=== PATIENT | male | born 1955 | race African-American/Black ===

== ENCOUNTER 2018-12-05 11:11 | Inpatient (IN) | payer BC, OTHER ==
[2018-11-25 13:26] VITALS: BMI 28.2
--- NOTE | 2018-12-05 09:34 | HP ---
[facility]ellite [facility] - Chief Complaint Chief Complaint: right knee pain - Past Medical History Allergies/Adverse Reactions: Allergies Allergy/AdvReac Type Severity Reaction Status Date / Time No Known Drug Allergies Allergy Verified 11/25/18 13:26 - Current Medications Current Medications: Home Medications Medication Instructions Recorded Atorvastatin Ca [Lipitor] 20 mg PO DAILY 11/25/18 Lisinopril 10 mg PO DAILY 11/25/18 Sitagliptin Phos/Metformin HCl 1 tab PO BID 11/25/18 [Janumet 50-1,000 mg Tablet] Satellite Physical Exam - Physical Examination General Appearance: Well Nourished, Well Developed, Alert & Oriented x3 ENT: Clear Lung: Normal air movement Heart: Regular rate & rhythm Extremities: Other (right knee- + swelling, + ttp, decr rom, nvi xrays show grade 4 tricompartmental djd) Neurological: Intact, Alert, Oriented Satellite Impression/Plan - Impression/Plan Impression: right knee djd Operative Procedure: right morris tkr Date to be Performed: 12/05/18
[2018-12-05] MEDS ORDERED: CEFAZOLIN 2 GM in DEXTROSE 5%-WATER - 50 ML IVPB ONE (11:34)
[2018-12-05] MEDS ORDERED: TRANEXAMIC ACID 1000 MG/10 ML VIAL IVPUSH ONE (11:34)
[2018-12-05] MEDS: oxyCODONE HCL 10 MG SUSTAINED ACTING TABLET PO ONE ×2 (13:30→19:12)
[2018-12-05] MEDS: CELECOXIB 200 MG CAPSULE PO ONE ×2 (13:30→19:13)
[2018-12-05] MEDS: GABAPENTIN 300 MG CAPSULE (FP) PO ONE ×2 (13:30→19:13)
[2018-12-05] MEDS ORDERED: MIDAZOLAM HCL 2 MG/2 ML SINGLE DOSE VIAL ONE (13:48)
[2018-12-05] MEDS ORDERED: BUPIVACAINE LIPOSOME/PF (EXPAREL) 266 MG/20 ML VIAL ONE (13:48)
[2018-12-05] MEDS ORDERED: ceFAZolin SODIUM 1 GM VIAL ONE ×2 (14:06→14:43)
[2018-12-05] MEDS ORDERED: VANCOMYCIN 1,000 MG VIAL (RESTRICTED TO ID ONLY) ONE (14:06)
[2018-12-05] MEDS ORDERED: BUPIVACAINE HCL/PF 0.5% (5MG/ML) 10 ML VIAL ONE (14:34)
[2018-12-05] MEDS ORDERED: PROPOFOL 20 ML ONE ×2 (14:46)
[2018-12-05] MEDS ORDERED: VANCOMYCIN 1,000 MG VIAL (RESTRICTED TO ID ONLY) IVPB ONE (15:23)
[2018-12-05] MEDS ORDERED: ONDANSETRON 4 MG/2 ML VIAL ONE (15:42)
[2018-12-05] MEDS ORDERED: DEXAMETHASONE SOD PHOSPHATE 4 MG/1 ML VIAL ONE (15:42)
[2018-12-05] MEDS ORDERED: MAGNESIUM HYDROX 2400MG/30ML ORAL SUSPENSION 30 ML CUP PO PRN (16:23)
[2018-12-05] MEDS ORDERED: MAG HYDROX/AL HYDROX/SIMETH 30 ML UNIT-DOSE CUP PO PRN (16:23)
[2018-12-05] MEDS ORDERED: ONDANSETRON 4 MG/2 ML VIAL IVPUSH PRN (16:23)
--- NOTE | 2018-12-05 16:25 | OP ---
Operative Note - Note: Operative Date: 12/05/18 ([place]) Pre-Operative Diagnosis: right knee djd Operation: right morris tkr Post-Operative Diagnosis: Same as Pre-op Surgeon: Solis العلي Loader Magazine Grinder: Matty Castro Anesthesiologist/FRUIT GRADING SUPERVISOR: Levi Vizcarra Anesthesia: Spinal, Local Specimens Removed: bone fragments Estimated Blood Loss (mls): 150 Operative Report Dictated: Yes
[2018-12-05] MEDS ORDERED: LACTATED RINGERS SOLUTION 1,000 ML IV SCH (16:30)
[2018-12-05] MEDS ORDERED: oxyCODONE HCL 5 MG TABLET PO PRN (16:52)
[2018-12-05] MEDS ORDERED: ACETAMINOPHEN 325 MG TABLET (FP) ONE (17:11)
[2018-12-05] MEDS ORDERED: ACETAMINOPHEN 325 MG TABLET (FP) PO ONE (17:15)
[2018-12-05] MEDS: ACETAMINOPHEN 325 MG TABLET (FP) PO SCH ×2 (17:53→22:35)
[2018-12-05] MEDS ORDERED: INSULIN (NOVOLOG) ASPART 100 UNITS/ML 10ML VIAL ONE (18:01)
[2018-12-05] MEDS: INSULIN SLIDING SCALE (NOVOLOG) 1 VIAL SQ SCH ×2 (18:12→21:30)
[2018-12-05] MEDS: ATORVASTATIN CA 20 MG TABLET (FP) PO SCH (21:24)
[2018-12-05] MEDS: GABAPENTIN 300 MG CAPSULE (FP) PO SCH (21:24)
[2018-12-05] MEDS: SENNOSIDES/DOCUSATE COMBO (SENNA PLUS) TABLET (UD) PO SCH (21:25)
[2018-12-05] MEDS: oxyCODONE HCL 10 MG SUSTAINED ACTING TABLET PO SCH (21:25)
[2018-12-05] MEDS: oxyCODONE HCL 5 MG TABLET PO PRN (21:26)
[2018-12-05] MEDS ORDERED: PATIENT'S OWN MEDICATION (NON-FORMULARY) (Sitagliptin Phos/Metformin Hcl [Janumet 50-1,000 PO SCH (22:00)
[2018-12-05] MEDS: CEFAZOLIN 2 GM/D5W 2 GM/50 ML ML IVPB SCH (22:36)
[2018-12-06] MEDS: ACETAMINOPHEN 325 MG TABLET (FP) PO SCH ×4 (05:41→23:00)
[2018-12-06] MEDS: oxyCODONE HCL 5 MG TABLET PO PRN ×2 (05:42→09:59)
[2018-12-06] MEDS: CEFAZOLIN 2 GM/D5W 2 GM/50 ML ML IVPB SCH (06:15)
[2018-12-06] MEDS: metFORMIN HCL 500 MG TABLET (FP) PO SCH ×2 (06:15→16:30)
[2018-12-06] MEDS: sitaGLIPtin PHOSPHATE 50 MG TABLET PO SCH ×2 (06:16→16:35)
[2018-12-06] MEDS: INSULIN SLIDING SCALE (NOVOLOG) 1 VIAL SQ SCH ×4 (06:16→21:54)
--- NOTE | 2018-12-06 07:01 | SPEC ---
DATE OF OPERATION: 12/05/2018 PREOPERATIVE DIAGNOSIS: Degenerative joint disease, right knee. POSTOPERATIVE DIAGNOSIS: Degenerative joint disease, right knee. PROCEDURE: Right total knee replacement with robotic-assisted navigation (MAKOplasty). SURGICAL ATTENDING: Venkat العلي MD DAILY SALES AUDIT CLERK: HARJIT Mario ANESTHESIA: Regional and spinal. CLOSURE: A Triathlon cement-less total knee system with a 6 femur, 5 tibia, 11 polyethylene, a 35-mm press-fit patella; No. 1 Vicryl, fascia; 0 and 2-0 for subcutaneous; and 3-0 Monocryl subcuticular with skin glue for skin; 4-0 undyed Vicryl for pin sites. ESTIMATED BLOOD LOSS: Less than 100 mL. COMPLICATIONS: None. CONDITION: To recovery room in stable condition. DESCRIPTION OF OPERATIVE PROCEDURE: Patient was taken to the operating room on December 05, 2018. Regional and spinal anesthesia was administered by the anesthesiologist. IV Kefzol was administered prophylactically prior to the case as well as TXA. The right lower extremity was prepped and draped in the usual sterile fashion. The midline 10- to 12-cm longitudinal incision was made. Hemostasis was achieved with Bovie cautery. Sharp dissection was carried down to the extensor mechanism which was perform the procedure. Medial parapatellar arthrotomy was then performed, leaving a cuff of tissue for later closure. The patella was inverted and the knee was flexed up. The fat pad was excised. Subperiosteal dissection was done on the anteromedial proximal tibia until the knee was able to be brought forward. This was facilitated by taking the ACL, PCL and medial and lateral menisci. Checkpoints were placed in both the femur and in the tibia. Two parallel threaded pins were drilled superior to the knee joint through the already made incision from anterior to posterior just going through the anterior cortex but just engaging but not going through the posterior cortex. Two threaded pins were drilled through 2 small stab incisions in parallel fashion 1 handbreadth below the tibial tubercle through the anterior cortex of the tibia and engaging but not going through the posterior cortex. Both sets of pins were attached to navigation arrays for the SUZY system. The knee was then registered with the navigation system with center of rotation of the hip, medial and lateral malleoli and multiple sites both on the tibia and on the femur. Confirmation of excellent registration was confirmed by "popping the bubbles." At this time, the knee was thoroughly inspected to remove all osteophytes around the knee. The knee was then tensioned in varus/valgus at both full extension and at 90 degrees of flexion to ascertain our gaps. The virtual position of the components was optimized to ensure equal gaps throughout the range of motion. Once this was performed, the robot was brought into the field, was registered. The bone was cut as per the specifications on both the tibia and on the femur. The box cuts were then made as well. Excellent trial stability was obtained on the femur. The tibial baseplate was allowed to "find itself" and then was clipped into place. Confirmation of excellent external rotation of that component was confirmed by the navigation device as well.The patella was calibered for thickness and cut at the appropriate level. The appropriate lollipop was used to drill 3 holes in the patella and a trial asymmetric patellar button was applied. The knee was taken through a range of motion and found to have excellent stability from full extension to full flexion with excellent tracking of the patella. The trial components were then removed. The lug holes were drilled in the femur. The cementless keel was punched in the tibia. The real Press-Fit components were malleted into place, first with the tibia and then with the femur, and then the patella was crimped into place as well. The real polyethylene liner was then clipped into place. Range of motion, stability and tracking were as described earlier. The knee was thoroughly irrigated with copious amounts of irrigation. Vancomycin powder was placed inside the joint. The medial parapatellar arthrotomy was then closed using No. 1 Vicryl interrupted suture. Post closure of the arthrotomy, the knee was taken through a range of motion and found to have no undue tension on the repair. The subcutaneous was then pulse antibiotic irrigated, closed with 0 and 2-0 Vicryl and 3-0 Monocryl subcuticular with skin glue for the skin. Prior to closure, the checkpoints were removed as were the threaded pins. The tibial pin sites were closed with 4-0 undyed Vicryl. A sterile pressure Aquacel dressing was applied. No tourniquet was used during the case. The total blood loss was approximately 100 mL. No complication. Patient was transferred to recovery in stable condition. VENKAT العلي M.D. KIESHA/[id number]
[2018-12-06 07:46] LABS: HEMATOCRIT 34.1 % (35.4-49); HEMOGLOBIN 11.4 GM/dl (11.7-16.9); MCHC 33.5 g/dl (32.0-35.9); MEAN CELL VOLUME 95.4 fl (80-96); MEAN PLT VOLUME 9.4 fl (7.5-11.1); PLATELET COUNT 157 K/MM3 (134-434); RBC 3.57 M/mm3 (4.00-5.60); RDW 10.7 % (11.9-15.9); WHITE BLOOD COUNT 10.9 K/mm3 (4.0-10.8)
[2018-12-06] MEDS: ASPIRIN 325 MG TABLET PO SCH (09:00)
[2018-12-06] MEDS: GABAPENTIN 300 MG CAPSULE (FP) PO SCH ×2 (09:58→21:09)
[2018-12-06] MEDS: SENNOSIDES/DOCUSATE COMBO (SENNA PLUS) TABLET (UD) PO SCH ×2 (09:58→21:09)
[2018-12-06] MEDS: MULTIVITAMINS (DAILY MVI) TABLET (FP) PO SCH (09:58)
[2018-12-06] MEDS: PANTOPRAZOLE 40 MG TABLET (FP) PO SCH (09:59)
[2018-12-06] MEDS: oxyCODONE HCL 10 MG SUSTAINED ACTING TABLET PO SCH ×2 (09:59→21:10)
[2018-12-06] MEDS: LISINOPRIL 10 MG TABLET (FP) PO SCH (09:59)
--- NOTE | 2018-12-06 15:17 | PN ---
Progress Note (short form) - Note Progress Note: Ortho Pt seen and examined s/p right morris tkr pod #1 Selected Entries 12/06/18 14:02 Temperature 98.6 F Pulse Rate 85 Respiratory 17 Rate Blood Pressure 101/50 L Laboratory Tests 12/06/18 07:05 WBC 10.9 H Hgb 11.4 L Hct 34.1 L Plt Count 157 dressing saturated, calf soft, nt rom 0-90, nvi a/p dressing changed PT dvt ppx pain control d/c home tomorrow if stable
[2018-12-06] MEDS: ATORVASTATIN CA 20 MG TABLET (FP) PO SCH (21:09)
[2018-12-07] MEDS: ACETAMINOPHEN 325 MG TABLET (FP) PO SCH ×4 (05:34→22:17)
[2018-12-07] MEDS: sitaGLIPtin PHOSPHATE 50 MG TABLET PO SCH ×2 (06:28→16:45)
[2018-12-07] MEDS: metFORMIN HCL 500 MG TABLET (FP) PO SCH ×2 (06:28→16:45)
[2018-12-07] MEDS: INSULIN SLIDING SCALE (NOVOLOG) 1 VIAL SQ SCH ×4 (06:48→22:09)
[2018-12-07 07:51] LABS: HEMATOCRIT 32.1 % (35.4-49); HEMOGLOBIN 10.4 GM/dl (11.7-16.9); MCH 31.3 pg (25.7-33.7); MCHC 32.4 g/dl (32.0-35.9); MEAN CELL VOLUME 96.6 fl (80-96); MEAN PLT VOLUME 10.4 fl (7.5-11.1); PLATELET COUNT 157 K/MM3 (134-434); RBC 3.32 M/mm3 (4.00-5.60); WHITE BLOOD COUNT 12.1 K/mm3 (4.0-10.8)
[2018-12-07] MEDS: ASPIRIN 325 MG TABLET PO SCH (09:08)
--- NOTE | 2018-12-07 09:28 | PN ---
Progress Note (short form) - Note Progress Note: Ortho Pt seen and examined s/p right morris tkr pod #2. dressing still with drainage Selected Entries 12/07/18 05:00 Temperature 99.0 F Pulse Rate 90 Respiratory 20 Rate Blood Pressure 157/87 Laboratory Tests 12/07/18 07:10 WBC 12.1 H Hgb 10.4 L Hct 32.1 L Plt Count 157 dressing saturated, calf soft, nt rom 0-90, nvi a/p dressing changed- will need to keep pt to monitor incision and wound healing PT dvt ppx pain control d/c home tomorrow if stable
[2018-12-07] MEDS: GABAPENTIN 300 MG CAPSULE (FP) PO SCH ×2 (09:39→22:09)
[2018-12-07] MEDS: PANTOPRAZOLE 40 MG TABLET (FP) PO SCH (09:39)
[2018-12-07] MEDS: SENNOSIDES/DOCUSATE COMBO (SENNA PLUS) TABLET (UD) PO SCH ×2 (09:39→22:09)
[2018-12-07] MEDS: MULTIVITAMINS (DAILY MVI) TABLET (FP) PO SCH (09:39)
[2018-12-07] MEDS: LISINOPRIL 10 MG TABLET (FP) PO SCH (09:39)
[2018-12-07] MEDS: traMADol HCL 50 MG TABLET PO PRN (09:39)
[2018-12-07] MEDS: oxyCODONE HCL 10 MG SUSTAINED ACTING TABLET PO SCH ×2 (09:40→22:09)
[2018-12-07] MEDS: ATORVASTATIN CA 20 MG TABLET (FP) PO SCH (22:09)
[2018-12-08] MEDS: traMADol HCL 50 MG TABLET PO PRN ×2 (01:47→06:57)
[2018-12-08] MEDS: metFORMIN HCL 500 MG TABLET (FP) PO SCH (06:19)
[2018-12-08] MEDS: ACETAMINOPHEN 325 MG TABLET (FP) PO SCH (06:19)
[2018-12-08] MEDS: sitaGLIPtin PHOSPHATE 50 MG TABLET PO SCH (06:22)
[2018-12-08] MEDS: INSULIN SLIDING SCALE (NOVOLOG) 1 VIAL SQ SCH (06:23)
--- NOTE | 2018-12-08 07:27 | PN ---
Progress Note (short form) - Note Progress Note: Ortho Pt seen and examined s/p right morris tkr pod #3. Selected Entries 12/08/18 06:00 Temperature 99.0 F Pulse Rate 103 H Respiratory 18 Rate Blood Pressure 157/74 Laboratory Tests 12/07/18 07:10 WBC 12.1 H Hgb 10.4 L Hct 32.1 L Plt Count 157 dressing with slight saturation, calf soft, nt rom 0-90, nvi a/p dressing changed- no active drainage PT dvt ppx pain control d/c home today f/u in 1 week
--- NOTE | 2018-12-08 07:28 | DS ---
Physical Examination Vital Signs: Vital Signs Temperature 99.0 F 12/08/18 06:00 Pulse Rate 103 H 12/08/18 06:00 Respiratory Rate 18 12/08/18 06:00 Blood Pressure 157/74 12/08/18 06:00 O2 Sat by Pulse Oximetry (%) 98 12/08/18 06:00 Labs: CBC, BMP 12/07/18 07:10 Discharge Summary Reason For Visit: OSTEOARTHRITIS Procedures: Principal: right tkr Hospital Course: admitted for elective right morris tkr, incision with drainage since surgery- has since resolved, stable for d/c Condition: Good - Instructions Diet, Activity, Other Instructions: Post-op Instructions-Total Knee Replacement Call the office for a follow-up appointment in 1 week - [phone] Aspirin 325mg daily for 6 weeks. Pain medication was sent into your pharmacy. Apply Graduated Compression Stockings (TEDs) to both lower extremities- remove daily for hygiene ONLY Apply Sequential Compression Device (SCDs) to both Lower extremities remove for PT and hygiene ONLY Apply cold packs to affected area for 15 minutes every 2 hours. Physical Therapist will come to your home for the first 5 days. You will be set up with outpatient PT at your first post-operative visit. Patient may ambulate as tolerated-encourage self care (at least every 2-3 hours while awake) with walker or cane Maintain Aquacel (waterproof) dressing to operative wound (will be removed by surgeon at first office visit) Shower with Aquacel dressing in place-if Aquacel integrity compromised, remove and apply dry sterile dressing and notify Orthopedist. DO NOT SHOWER unless Orthopedists approves without Aquacel dressing CONTACT THE OFFICE FOR ANY CHANGE IN YOUR CONDITION (for example-fever greater than 102 degrees, excessive bleeding from operative site, purulent drainage, severe swelling or pain) GO TO THE EMERGENCY ROOM IF THERE IS A MEDICAL EMERGENCY Knee Precautions: * Keep a rolled towel under affected heel while in bed or chair (to keep knee in extension) * Keep affected leg elevated except during mealtimes * DO NOT PLACE PILLOW UNDER AFFECTED KNEE * If you have any questions, please do not hesitate to call the office - . Referrals: Solis العلي MD [Staff Physician] - Disposition: VNS/HOME HEALTH CARE - Home Medications Comprehensive Discharge Medication List: Ambulatory Orders Atorvastatin Ca [Lipitor] 20 mg PO DAILY 11/25/18 Lisinopril 10 mg PO DAILY 11/25/18 Sitagliptin Phos/Metformin HCl [Janumet 50-1,000 mg Tablet] 1 tab PO BID
[2018-12-08] MEDS: ASPIRIN 325 MG TABLET PO SCH (08:41)
[2018-12-08 08:56] VITALS: BP 145/75; PULSE 94; TEMP 98.1
[2018-12-08] MEDS: PANTOPRAZOLE 40 MG TABLET (FP) PO SCH (09:37)
[2018-12-08] MEDS: LISINOPRIL 10 MG TABLET (FP) PO SCH (09:37)
[2018-12-08] MEDS: GABAPENTIN 300 MG CAPSULE (FP) PO SCH (09:37)
[2018-12-08] MEDS: SENNOSIDES/DOCUSATE COMBO (SENNA PLUS) TABLET (UD) PO SCH (09:37)
[2018-12-08] MEDS: MULTIVITAMINS (DAILY MVI) TABLET (FP) PO SCH (09:37)
[2018-12-08] MEDS: oxyCODONE HCL 10 MG SUSTAINED ACTING TABLET PO SCH (09:38)
--- NOTE | 2018-12-09 16:23 | PATH ---
Surgical Pathology Report Patient Name: DANIEL ARREGUIN Med. Rec. #: [id number] /Age/Gender: 1955 (Age: 62) / M Account: [id number] Location: [facility] MED-SURG Taken: 12/05/2018 Received: 12/05/2018 Reported: 12/09/2018 Physicians: Solis العلي M.D. Specimen(s) Received RIGHT KNEE BONE Clinical History Osteoarthritis Final Diagnosis KNEE BONE, RIGHT, TOTAL KNEE REPLACEMENT: DEGENERATIVE JOINT DISEASE. Electronically Signed Carlita Patrick M.D. Gross Description Received in formalin labeled "right knee bone," is an 11.5 x 9.5 x 1.4 cm aggregate of multiple portions of bone and soft tissue, consistent with knee bones. No areas of eburnation are identified. The articular surfaces are schmid-brown and focally granular. The underlying regular bone is yellow and hard. Side Seam Tender sections are submitted in one cassette, following decalcification. [facility]
== END 2018-12-08 12:29 | disposition home health service (06) | DRG 470 ==
LOC: FM/S 11:11
PROVIDERS: ADMIT Orthopaedic Surgery; ATTEND Orthopaedic Surgery
PROC: 8E0Y0CZ Robotic Assisted Procedure of Lower Extremity, Open Approach (ICD-10-PCS; 2018-12-05)
PROC: 0SRC0JA Replacement of Right Knee Joint with Synthetic Substitute, Uncemented, Open Approach (ICD-10-PCS; principal; 2018-12-05 15:00)
DX: M17.11 Unilateral primary osteoarthritis, right knee (principal)
CPT/HCPCS: 36415; 73560-TC-RT-FY; 82962; 85027; 88304-TC; 88311-TC; 94760; 97116-GP; 97163-GP